=== PATIENT | male | born 1990 | race American Indian/Alaskan Native ===

== ENCOUNTER 2020-04-20 19:40 | Emergency (ER) | payer BC ==
[2020-04-20] MEDS ORDERED: ASPIRIN 325 MG TAB PO ONE (20:13)
--- NOTE | 2020-04-20 20:24 | Event Note ---
ED Screening Note ED Screening Note: 30-year-old -[place] male with past medical history of uncontrolled hypertension currently taking amlodipine having been switched from lisinopril, but still having trouble with blood pressure control. Presents emerged department complaining of a 2-week history of of substernal chest pain which is worse with palpation and range of motion and deep breath and the sensation of sometimes having trouble catching his breath but reports no orthopnea, hematemesis, hematochezia, fever, chills, sweats, hemoptysis, lower extremity swelling, exertional dyspnea, palpitations. On physical examination speaks in full sentences no acute respiratory distress pain to the substernal region with palpation on each side of the sternal sternal border. No crepitus is appreciated. No bruising. This initial assessment/diagnostic orders/clinical plan/treatment(s) is/are subject to change based on patients health status, clinical progression and re- assessment by fellow clinical providers in the ED. Further treatment and workup at subsequent clinical providers discretion. Patient/guardian urged not to elope from the ED as their condition may be serious if not clinically assessed and managed. Initial orders include:
[2020-04-20 20:27] LABS: Basophils % (Auto) 0.4 % (0.0-1.8); Eosinophils # (Auto) 0.1 K/mm3 (0.0-0.4); Hematocrit 44.5 % (35.5-45.6); Hemoglobin 15.1 gm/dl (11.8-15.2); Lymphocytes # (Auto) 1.2 K/mm3 (1.2-5.4); Mean Corpuscular HGB Conc 34 % (32-34); Mean Corpuscular Volume 93 fl (84-94); Monocytes # (Auto) 0.5 K/mm3 (0.0-0.8); Monocytes % (Auto) 11.5 % (0.0-7.3); Platelet Count 192 K/mm3 (140-440); Red Blood Count 4.77 M/mm3 (3.65-5.03); Red Cell Distribution Width 14.4 % (13.2-15.2)
[2020-04-20 20:41] LABS: Alanine Aminotransferase 25 units/L (7-56); Albumin 4.2 g/dL (3.9-5); BUN/Creatinine Ratio 11; Blood Urea Nitrogen 10 mg/dL (9-20); Calcium 9.1 mg/dL (8.4-10.2); Hemolysis Index 6
--- NOTE | 2020-04-20 20:49 | Emergency Department Report ---
ED Chest Pain HPI - General Chief Complaint: Chest Pain Stated Complaint: CHEST PAIN/CARLIN Time Seen by Provider: 04/20/20 20:29 Source: patient Mode of arrival: Ambulatory Limitations: No Limitations - History of Present Illness Initial Comments: This is a 30-year-old -[place] male presents to the emergency department with a complaint of a 1 week history of progressively worsening midsternal chest pain. It has been constant since it began but the intensity has increased. It is currently a 9 out of 10 in intensity. It worsens when he is laying on his side, and with certain movements. When the patient lays flat he says that it feels like a pressure sensation. He says that he has to sleep on his stomach as that is the only comfortable position. It is associated with some intermittent shortness of breath. He denies any fever, nausea, vomiting, back pain, diaphoresis. He has not taken anything for symptoms prior to presentation. He has a past medical history of hypertension and does present with elevated blood pressure. He was just recently switched to amlodipine by his primary care physician, whose name he cannot currently remember. The patient will sometimes smoke hookah, but denies any illicit drug use. No recent travel or sick contacts at home. No family history of early cardiac events or HI. - Related Data Previous Rx's Medication Instructions Recorded Last Taken Type Ibuprofen [Motrin 800 MG tab] 800 mg PO Q8HR PRN #20 tablet 04/21/20 Unknown Rx Allergies Allergy/AdvReac Type Severity Reaction Status Date / Time No Known Allergies Allergy Unverified 04/20/20 20:15 Heart Score - HEART Score History: Slightly suspicious EKG: Non-specific Age: < 45 Risk factors: 1-2 risk factors Troponin: < normal limit HEART Score: 2 - Critical Actions Critical Actions: 0-3 pts:0.9-1.7%risk of adverse cardiac event.Candidate for discharge ED Review of Systems ROS: Stated complaint: CHEST PAIN/CARLIN Other details as noted in HPI Comment: All other systems reviewed and negative Constitutional: denies: chills, fever Eyes: denies: eye pain, vision change ENT: denies: ear pain, throat pain Respiratory: shortness of breath. denies: cough Cardiovascular: chest pain. denies: edema Gastrointestinal: denies: abdominal pain, vomiting Genitourinary: denies: dysuria, discharge Musculoskeletal: denies: back pain, arthralgia Skin: denies: rash, lesions Neurological: denies: headache, weakness ED Past Medical Hx - Past Medical History Previous Medical History?: Yes Hx Hypertension: Yes - Surgical History Past Surgical History?: No - Social History Smoking Status: Current Some Day Smoker Substance Use Type: None - Medications Home Medications: Home Medications Medication Instructions Recorded Confirmed Last Taken Type Ibuprofen [Motrin 800 MG tab] 800 mg PO Q8HR PRN #20 tablet 04/21/20 Unknown Rx ED Physical Exam - General Limitations: No Limitations - Other Other exam information: GENERAL: The patient is well-developed well-nourished. HENT: Normocephalic. Atraumatic. Patient has moist mucous membranes. EYES: Extraocular motions are intact. NECK: Supple. Trachea is midline. CHEST/LUNGS: Clear to auscultation. There is no respiratory distress noted. There is some reproducible midsternal chest pain to palpation. No crepitus or deformity. HEART/CARDIOVASCULAR: Regular. There is no tachycardia. There is no murmur. ABDOMEN: Abdomen is soft, nontender. Patient has normal bowel sounds. There is no abdominal distention. SKIN: Skin is warm and dry. NEURO: The patient is awake, alert, and oriented. The patient is cooperative. The patient has no focal neurologic deficits. Normal speech. MUSCULOSKELETAL: There is no tenderness or deformity. There is no limitation range of motion. ED Course Vital Signs 04/20/20 04/20/20 04/20/20 20:09 20:40 20:45 Temperature 98.3 F Pulse Rate 72 56 L Respiratory 18 15 12 Rate Blood Pressure 197/108 157/89 O2 Sat by Pulse 95 99 Oximetry 04/20/20 04/20/20 04/20/20 21:15 21:31 22:15 Temperature Pulse Rate 58 L 60 63 Respiratory 13 13 14 Rate Blood Pressure 149/94 149/94 168/102 O2 Sat by Pulse 84 83 L 98 Oximetry 04/20/20 04/20/20 04/20/20 22:36 22:45 23:15 Temperature Pulse Rate 55 L 58 L 61 Respiratory 7 L 19 Rate Blood Pressure 163/102 153/98 156/98 O2 Sat by Pulse 100 95 Oximetry 04/20/20 04/20/20 04/20/20 23:20 23:30 23:45 Temperature Pulse Rate 64 60 65 Respiratory 21 14 15 Rate Blood Pressure 149/94 153/92 O2 Sat by Pulse 100 99 97 Oximetry NA score - Na Score Age > 65: (0) No Aspirin use within the Past 7 Days: (0) No 3 or more CAD Risk Factors: (0) No 2 or more Angina events in past 24 hrs: (1) Yes Known CAD with more than 50% Stenosis: (0) No Elevated Cardiac Markers: (0) No ST Deviation Greater than 0.5mm: (1) Yes NA Score: 2 ED Medical Decision Making - Lab Data Result diagrams: 04/20/20 20:17 04/20/20 20:17 Lab Results 04/20/20 04/20/20 04/20/20 Range/Units 20:17 20:17 20:44 WBC 4.3 L (4.5-11.0) K/mm3 RBC 4.77 (3.65-5.03) M/mm3 Hgb 15.1 (11.8-15.2) gm/dl Hct 44.5 (35.5-45.6) % MCV 93 (84-94) fl MCH 32 (28-32) pg MCHC 34 (32-34) % RDW 14.4 (13.2-15.2) % Plt Count 192 (140-440) K/mm3 Lymph % (Auto) 27.0 (13.4-35.0) % [place] % (Auto) 11.5 H (0.0-7.3) % Eos % (Auto) 2.0 (0.0-4.3) % Baso % (Auto) 0.4 (0.0-1.8) % Lymph # (Auto) 1.2 (1.2-5.4) K/mm3 [place] # (Auto) 0.5 (0.0-0.8) K/mm3 Eos # (Auto) 0.1 (0.0-0.4) K/mm3 Baso # (Auto) 0.0 (0.0-0.1) K/mm3 Seg Neutrophils % 59.1 (40.0-70.0) % Seg Neutrophils # 2.5 (1.8-7.7) K/mm3 D-Dimer < 135.00 (0-234) ng/mlDDU Sodium 138 (137-145) mmol/L Potassium 3.9 (3.6-5.0) mmol/L Chloride 101.8 (98-107) mmol/L Carbon Dioxide 30 (22-30) mmol/L Anion Gap 10 mmol/L BUN 10 (9-20) mg/dL Creatinine 0.9 (0.8-1.3) mg/dL Estimated GFR > 60 ml/min BUN/Creatinine Ratio 11 % Glucose 87 (75-100) mg/dL Calcium 9.1 (8.4-10.2) mg/dL Total Bilirubin 0.30 (0.1-1.2) mg/dL AST 26 (5-40) units/L ALT 25 (7-56) units/L Alkaline Phosphatase 55 (35-129) units/L Troponin T < 0.010 (0.00-0.029) ng/mL Total Protein 6.9 (6.3-8.2) g/dL Albumin 4.2 (3.9-5) g/dL Albumin/Globulin Ratio 1.6 % // Range/Units 23:39 WBC (4.5-11.0) K/mm3 RBC (3.65-5.03) M/mm3 Hgb (11.8-15.2) gm/dl Hct (35.5-45.6) % MCV (84-94) fl MCH (28-32) pg MCHC (32-34) % RDW (13.2-15.2) % Plt Count (140-440) K/mm3 Lymph % (Auto) (13.4-35.0) % [place] % (Auto) (0.0-7.3) % Eos % (Auto) (0.0-4.3) % Baso % (Auto) (0.0-1.8) % Lymph # (Auto) (1.2-5.4) K/mm3 [place] # (Auto) (0.0-0.8) K/mm3 Eos # (Auto) (0.0-0.4) K/mm3 Baso # (Auto) (0.0-0.1) K/mm3 Seg Neutrophils % (40.0-70.0) % Seg Neutrophils # (1.8-7.7) K/mm3 D-Dimer (0-234) ng/mlDDU Sodium (137-145) mmol/L Potassium (3.6-5.0) mmol/L Chloride (98-107) mmol/L Carbon Dioxide (22-30) mmol/L Anion Gap mmol/L BUN (9-20) mg/dL Creatinine (0.8-1.3) mg/dL Estimated GFR ml/min BUN/Creatinine Ratio % Glucose (75-100) mg/dL Calcium (8.4-10.2) mg/dL Total Bilirubin (0.1-1.2) mg/dL AST (5-40) units/L ALT (7-56) units/L Alkaline Phosphatase (35-129) units/L Troponin T < 0.010 (0.00-0.029) ng/mL Total Protein (6.3-8.2) g/dL Albumin (3.9-5) g/dL Albumin/Globulin Ratio % - EKG Data -: EKG Interpreted by Me EKG shows normal: sinus rhythm, axis, intervals, QRS complexes, ST-T waves (Early repolarization) Rate: normal - EKG Data When compared to previous EKG there are: previous EKG unavailable Interpretation: other (Sinus rhythm, normal axis, normal intervals. Early repolarization. No ST elevation HI.) - Radiology Data Radiology results: image reviewed interpreted by me: Chest x-ray does not show any acute process. There are no pleural effusions, obvious pneumonia and there is no pneumothorax. No significant cardiomegaly. - Medical Decision Making This patient presents with a complaint of a 1 week history of midsternal chest pain that has been getting progressively worse and is associated with some intermittent shortness of breath. On examination the patient has normal sounding heart and lungs to auscultation. There is some reproducible midsternal chest pain to palpation but no crepitus or deformity. EKG does not have any morphology consistent with ST elevation myocardial infarction. The patient's labs have been unremarkable including CBC, metabolic panel, negative D-dimer, and negative troponins x2. He was given a shot of Toradol and upon reevaluation he is feeling greatly improved. The patient did present with elevated blood pressure and a history of hypertension. He was given a dose of Catapres and it came down to a more reasonable level. He is low on the heart and NA score. For all these reasons the patient appears safe for discharge home at this time. We discussed smoking cessation. We discussed staying away from foods that are high in salt and caffeinated products and keeping a blood pressure logs. The patient's contact information has been sent over to the [facility] [place], and someone from their office should be contacting him shortly for close outpatient follow-up as per our [facility] low risk chest pain protocol. Critical Care Time: No Critical care attestation.: If time is entered above; I have spent that time in minutes in the direct care of this critically ill patient, excluding procedure time. ED Disposition Clinical Impression: Chest pain Qualifiers: Chest pain type: unspecified Qualified Code(s): R07.9 - Chest pain, unspecified Hypertension Qualifiers: Hypertension type: essential hypertension Qualified Code(s): I10 - Essential (primary) hypertension Disposition: TO HOME OR SELFCARE Is pt being admited?: No Condition: Stable Instructions: Nonspecific Chest Pain, Adult, Hypertension, Adult, Chest Pain (ED), Hypertension (ED) Additional Instructions: Please follow-up with a primary care physician in the next few days. I am sending your contact information over to the [facility] [place], and someone from their office should be contacting you shortly for close outpatient follow-up. Just in case, I am giving you a referral for one of their hematology oncology consultant, Dr. Ann. Please avoid any tobacco use. Take your medications as prescribed. Try to stay away from foods that are high in salt and caffeinated products. Keep a blood pressure log. Return to the emergency department with any worsening of your symptoms, new or concerning symptoms not addressed during this current emergency department visit, or with any acute distress. Prescriptions: Ibuprofen [Motrin 800 MG tab] 800 mg PO Q8HR PRN #20 tablet PRN Reason: Pain , Severe (7-10) Referrals: PRIMARY CARE, [Primary Care Provider] - 3-5 Days PRISCILLA ANN MD [Staff Physician] - 3-5 Days Time of Disposition: 00:26
--- NOTE | 2020-04-20 20:50 | XRay Report ---
CHEST 2 VIEWS INDICATION / CLINICAL INFORMATION: Chest Pain. COMPARISON: None available. FINDINGS: SUPPORT DEVICES: None. HEART / MEDIASTINUM: No significant abnormality. LUNGS / PLEURA: No significant pulmonary or pleural abnormality. No pneumothorax. ADDITIONAL FINDINGS: No significant additional findings. IMPRESSION: 1. No acute findings. Signer Name: Sánchez Guardado MD Signed: 04/20/2020 8:45 PM Workstation Name: [id number]
[2020-04-20] MEDS ORDERED: KETOROLAC 30 MG/1 ML INJ IV ONE (20:56)
[2020-04-20] MEDS ORDERED: KETOROLAC 30 MG/1 ML INJ IM ONE (21:31)
[2020-04-20] MEDS ORDERED: cloNIDine 0.1 MG TAB PO ONE (22:29)
[2020-04-21 00:44] VITALS: BP 153/92
== END 2020-04-21 00:50 | disposition home or self-care (01) ==
LOC: ED 19:40
DX: R07.89 Other chest pain (principal); I10 Essential (primary) hypertension; F17.200 Nicotine dependence, unspecified, uncomplicated; Z79.1 Long term (current) use of non-steroidal anti-inflammatories (NSAID)
CPT/HCPCS: 36415; 71046; 80053; 84484; 85025; 85379; 93005; 96372; 99284; J1885